=== PATIENT | female | born 1955 | race Caucasian/White ===

== ENCOUNTER 2018-03-25 08:19 | Day surgery (SDC) | payer BC ==
[~2018-03-25] VITALS: Ht 162.6 cm; Wt 96.6 kg
[~2018-03-25 08:19] MED LIST: ACYC800 PO; ALPR.5 PO; AMLO5; ASPI81EC PO; ATEN25 PO; ATOR10 PO; Aspirin EC81 MG PO; BUTRANS1 EAC1 TD; CELE100; CHOL10002 PO; COLE625; CYCL10 PO; Cinnamon500 MG PO; DIAZ5 PO; DULO60 PO; Dyazide 37.5-21 EACH PO; GLIM2 PO; Glimepiride1 MG PO; HORMONE; HYDMOR4 PO; LISI5 PO; LOSHYD PO; MELO7.5 PO; MEPE50 PO; METF500; METF500 PO; METO100ER PO; METO50 PO; MODA200 PO; MULTI VITAMIN1 EACH PO; OMEG1CAP30 PO; OMEP20ER; OMEP20ER PO; POTA10T PO; POTCHL10ER; POTCHL10ER PO; PROM25 PO; RXHYDMOR2 PO; Ranitidine HCl150 M1; SITA100T2 PO; SUPPLEMENTS; VITAMIN C; Zantac150 MG PO; [UNRECOGNIZED DRUG - REMARK]; [UNRECOGNIZED DRUG - REMARK]
== END 2018-03-25 13:30 | disposition home or self-care (01) ==
LOC: ORSCSDS 08:19
PROVIDERS: Orthopaedic Surgery
PROC: 01N40ZZ Release Ulnar Nerve, Open Approach (ICD-10-PCS; principal; 2018-03-25 09:45)
DX: G56.21 Lesion of ulnar nerve, right upper limb (principal); I10 Essential (primary) hypertension; J44.9 Chronic obstructive pulmonary disease, unspecified; G47.33 Obstructive sleep apnea (adult) (pediatric); E11.9 Type 2 diabetes mellitus without complications; K21.9 Gastro-esophageal reflux disease without esophagitis; Z79.899 Other long term (current) drug therapy; Z79.82 Long term (current) use of aspirin; E66.01 Morbid (severe) obesity due to excess calories; Z68.36 Body mass index [BMI] 36.0-36.9, adult
CPT/HCPCS: 82947; J1100; J1885; J2370; J2405; J3010; J7120

== ENCOUNTER 2019-06-07 11:32 | Day surgery (SDC) | payer BC, MEDICARE ==
[~2019-06-07] VITALS: Ht 162.6 cm; Wt 100.9 kg
[~2019-06-07 11:32] MED LIST changes: +ABILIFY MYCITE5 M1; +Amlodipine Bes2.5 MG; +DULO60; +Glucotrol5 MG
--- NOTE | 2019-06-07 12:48 | NUR ---
06/07/19 1248 Marion Comer PT DID A DOUBLE PREP FOR PROCEDURE MIRALAX AND SUPREP
--- NOTE | 2019-06-07 14:59 | NUR ---
06/07/19 1459 Eli Roque PATIENT IS COUGHING, SATS ARE BETWEEN 95-97% ON ROOM AIR. LUNGS ARE CLEAR, PATIENT STATES THAT HER MOUTH IS DRY. NOTIFIED DR. QUILES, PER DR. QUILES PATIENT IS OK TO DISCHARGE HOME.
== END 2019-06-07 14:58 | disposition home or self-care (01) ==
LOC: ORSCSDS 11:32
PROVIDERS: Internal Medicine Gastroenterology
PROC: 0DB68ZX Excision of Stomach, Via Natural or Artificial Opening Endoscopic, Diagnostic (ICD-10-PCS; principal; 2019-06-07 13:00)
PROC: 0DBM8ZX Excision of Descending Colon, Via Natural or Artificial Opening Endoscopic, Diagnostic (ICD-10-PCS; principal; 2019-06-07 13:00)
PROC: 0D758ZZ Dilation of Esophagus, Via Natural or Artificial Opening Endoscopic (ICD-10-PCS; principal; 2019-06-07 13:00)
DX: R13.14 Dysphagia, pharyngoesophageal phase (principal); K76.6 Portal hypertension; K31.89 Other diseases of stomach and duodenum; D12.4 Benign neoplasm of descending colon; K57.30 Diverticulosis of large intestine without perforation or abscess without bleeding; Z12.11 Encounter for screening for malignant neoplasm of colon; Z86.010 Personal history of colon polyps; Z83.71 Family history of colonic polyps; K76.0 Fatty (change of) liver, not elsewhere classified; K74.60 Unspecified cirrhosis of liver; E66.01 Morbid (severe) obesity due to excess calories; Z68.38 Body mass index [BMI] 38.0-38.9, adult; F41.8 Other specified anxiety disorders; G47.33 Obstructive sleep apnea (adult) (pediatric); E11.9 Type 2 diabetes mellitus without complications; Z79.82 Long term (current) use of aspirin; Z79.84 Long term (current) use of oral hypoglycemic drugs; Z79.899 Other long term (current) drug therapy
CPT/HCPCS: 82947; 87081; 88305; 93005; 93010; J2704; J7120

== ENCOUNTER → 2020-02-13 | Outpatient (CLI) | payer BC, MEDICARE ==
[2020-02-13 13:58] LABS: Source, Urine Clean Catch
[2020-02-13 19:31] LABS: Appearance, Urine Clear (Clear); Bilirubin, Urine Neg (Neg); Blood, Urine Neg (Neg); Color, Urine Yellow (P-Yellow); Glucose Qualitative, Urine Neg (Neg); Ketones, Urine Neg (Neg); Leukocyte Esterase, Urine Neg (Neg); Nitrite, Urine Neg (Neg); Protein, Urine Neg (Neg); Specific Gravity, Urine 1.015 (1.003-1.022); Urobilinogen, Urine 3+ (Normal)
== END ==
LOC: LAB 13:56 → LAB SHORT 13:56
PROVIDERS: Nurse Practitioner Family
DX: N39.46 Mixed incontinence (principal); R35.0 Frequency of micturition
CPT/HCPCS: 81003

== ENCOUNTER 2021-05-07 14:01 | Day surgery (SDC) | payer BC, MEDICARE ==
[~2021-05-07] VITALS: Ht 162.6 cm; Wt 96.5 kg
[2021-05-07] MEDS ORDERED: ROSU5 PO (14:59)
== END 2021-05-07 16:43 | disposition home or self-care (01) ==
LOC: ORSCSDS 14:01
PROVIDERS: Internal Medicine Gastroenterology
PROC: 0DJ08ZZ Inspection of Upper Intestinal Tract, Via Natural or Artificial Opening Endoscopic (ICD-10-PCS; principal; 2021-05-07 15:30)
DX: K74.60 Unspecified cirrhosis of liver (principal); Z13.810 Encounter for screening for upper gastrointestinal disorder; K76.6 Portal hypertension; K31.89 Other diseases of stomach and duodenum; G47.39 Other sleep apnea; E11.9 Type 2 diabetes mellitus without complications; K21.9 Gastro-esophageal reflux disease without esophagitis; G47.33 Obstructive sleep apnea (adult) (pediatric); I10 Essential (primary) hypertension; I25.10 Atherosclerotic heart disease of native coronary artery without angina pectoris; E66.9 Obesity, unspecified; Z68.37 Body mass index [BMI] 37.0-37.9, adult; Z79.82 Long term (current) use of aspirin; Z79.84 Long term (current) use of oral hypoglycemic drugs; Z79.899 Other long term (current) drug therapy
CPT/HCPCS: 82947; J0330; J0461; J2405; J2704

== ENCOUNTER 2021-10-04 20:59 | Emergency (ER) | payer BC, MEDICARE ==
[~2021-10-04] VITALS: Ht 167.6 cm; Wt 93.4 kg
[~2021-10-04 20:59] MED LIST changes: +ROSU5 PO
[2021-10-04] MEDS ORDERED: HYDSUL200 PO (22:07)
[2021-10-04 22:20] LABS: BASOPHILS ABSOLUTE AUTO 0.02 K/mm3 (0.00-0.23); BASOPHILS PERCENT AUTO 1 % (0-2); EOSINOPHILS ABSOLUTE AUTO 0.23 K/mm3 (0.00-0.68); EOSINOPHILS PERCENT AUTO 6 % (0-6); Hematocrit 38.5 % (33.0-51.0); Hemoglobin 13.1 g/dL (11.5-16.0); IMMATURE GRAN PERCENT AUTO 0 % (0-1); LYMPHOCYTES ABSOLUTE AUTO 0.83 K/mm3 (0.84-5.20); LYMPHOCYTES PERCENT AUTO 21 % (21-46); MONOCYTES ABSOLUTE AUTO 0.42 K/mm3 (0.16-1.47); MONOCYTES PERCENT AUTO 11 % (4-13); Mean Corpuscular HGB 33.4 pg (26.0-34.0); Mean Corpuscular Volume 98 fL (80-100); Mean Platelet Volume 9.5 fL (9.1-12.4); NEUTROPHILS ABSOLUTE AUTO 2.45 K/mm3 (1.96-9.15); NEUTROPHILS PERCENT AUTO 62 % (41-73); Platelet Count 178 K/mm3 (150-400); RDW Coefficient Variation 13.2 % (11.7-14.2); RDW Standard Deviation 47.4 fL (35.1-46.3); Red Blood Cell Count 3.92 M/mm3 (3.80-5.20); White Blood Cell Count 3.95 K/mm3 (4.00-11.30)
[2021-10-04 22:39] LABS: Albumin, Blood 3.4 g/dL (3.4-5.0); Albumin/Globulin Ratio 0.8 (0.8-1.8); Bilirubin, Total 0.4 mg/dL (0.1-1.0); Bun/Creatinine Ratio 37.8 (12.0-20.0); Calcium, Blood 10.8 mg/dL (8.5-10.1); Creatinine, Blood 0.5 mg/dL (0.40-1.00); Globulin, Blood 4.2 g/dL (2.2-4.0); Potassium, Blood 3.5 mmol/L (3.5-5.5); Total Protein, Blood 7.6 g/dL (6.4-8.2)
[2021-10-04 23:54] LABS: Magnesium, Blood 1.6 mg/dL (1.6-2.4)
[2021-10-05] MEDS ORDERED: MECL25 PO ×2 (01:12→01:36)
== END 2021-10-05 01:39 | disposition home or self-care (01) ==
LOC: ER 20:59
PROVIDERS: Student in an Organized Health Care Education/Training Program
DX: R42 Dizziness and giddiness (principal); R11.0 Nausea; R07.89 Other chest pain; I10 Essential (primary) hypertension; E11.9 Type 2 diabetes mellitus without complications
CPT/HCPCS: 80053; 83735; 84484; 85025; 93005; 93010; A9270

== ENCOUNTER → 2023-05-07 | Outpatient (CLI) | payer OTHER ==
[~2023-05-07] MED LIST changes: +HYDSUL200 PO; +MECL25 PO
[2023-05-07 14:11] LABS: BASOPHILS ABSOLUTE AUTO 0.01 K/mm3 (0.00-0.23); BASOPHILS PERCENT AUTO 0 % (0-2); EOSINOPHILS ABSOLUTE AUTO 0.15 K/mm3 (0.00-0.68); EOSINOPHILS PERCENT AUTO 4 % (0-6); Hematocrit 36.6 % (33.0-51.0); Hemoglobin 11.8 g/dL (11.5-16.0); IMMATURE GRAN ABSOLUTE AUTO 0.02 K/mm3 (0.00-0.10); IMMATURE GRAN PERCENT AUTO 1 % (0-1); LYMPHOCYTES ABSOLUTE AUTO 0.77 K/mm3 (0.84-5.20); LYMPHOCYTES PERCENT AUTO 20 % (21-46); MONOCYTES PERCENT AUTO 8 % (4-13); Mean Corpuscular HGB Conc 32.2 g/dL (31.5-36.5); Mean Corpuscular Volume 102 fL (80-100); Mean Platelet Volume 10.2 fL (9.1-12.4); NEUTROPHILS ABSOLUTE AUTO 2.58 K/mm3 (1.96-9.15); NEUTROPHILS PERCENT AUTO 67 % (41-73); Platelet Count 186 K/mm3 (150-400); RDW Coefficient Variation 14.2 % (11.7-14.2); Red Blood Cell Count 3.58 M/mm3 (3.80-5.20); White Blood Cell Count 3.83 K/mm3 (4.00-11.30)
[2023-05-07 14:39] LABS: Albumin, Blood 3.5 g/dL (3.4-5.0); Albumin/Globulin Ratio 0.9 (0.8-1.8); Bilirubin, Total 0.4 mg/dL (0.1-1.0); Bun/Creatinine Ratio 29.4 (12.0-20.0); Calcium, Blood 10.4 mg/dL (8.5-10.1); Creatinine, Blood 0.72 mg/dL (0.40-1.00); Globulin, Blood 4.1 g/dL (2.2-4.0); Potassium, Blood 3.5 mmol/L (3.5-5.5); Total Protein, Blood 7.6 g/dL (6.4-8.2)
== END | disposition home or self-care (01) ==
LOC: LAB SHORT 14:00 → LAB 14:00
PROVIDERS: Family Medicine
DX: R42 Dizziness and giddiness (principal); R82.90 Unspecified abnormal findings in urine
CPT/HCPCS: 80053; 85025; 87086

== ENCOUNTER 2023-10-07 09:20 | Day surgery (SDC) | payer OTHER ==
[~2023-10-07] VITALS: Ht 162.6 cm; Wt 87.2 kg
[~2023-10-07 09:20] MED LIST changes: +Balanced Salt Epinephrine Irrigation Solution 500 mL IR SCH; +CELEBREX200 MG PO; +CYMBALTA30 M2 PO; +Cipro500 MG PO; +FEROSUL325 MG; +GLIP5 PO; +HYDCHL25 PO; +KLOR-CON 1010 ME9 PO; +Lidocaine HCl/Pf 1% 5 ML VIAL XX SCH; +Moxifloxacin HCL 0.5 MG/0.1 ML 0.4MLSYR RIGHTEYE SCH; +NS 500 ML IV ONE; +OXYB5 PO; +PHENYLEPHRINE\\TROPICAMIDE\\TETRACAINE OPHTHALMIC DILATING SOLN RIGHTEYE PRN; +PRAZOSIN HCL1 M2 PO; +Povidone-Iodine 450 DROP/30 ML Solution RIGHTEYE SCH; +RANOLAZINE ER500 M2 PO; +ROPINIROLE HCL PO; +TOPROL XL25 MG PO; +Triamcinolone Inj Susp 40 MG / ML 1ML Vial INJ SCH; +Triamcinolone Inj Susp 40 MG / ML 1ML Vial ONE
[2023-10-07] MEDS ORDERED: TAMS.4ER (10:11)
[2023-10-07] MEDS ORDERED: BUME1 (10:11)
[2023-10-07] MEDS ORDERED: ESCI10 (10:12)
[2023-10-07] MEDS ORDERED: NS 1,000 ML IV ONE (10:28)
[2023-10-07] MEDS ORDERED: Midazolam HCl 1MG / ML 2ML Vial ONE (10:58)
[2023-10-07] MEDS ORDERED: Tetracaine HCl 0.5% Opth Soln 15 ml RIGHTEYE ONE (10:58)
[2023-10-07 12:14] VITALS: BP 128/67
== END 2023-10-07 11:39 | disposition home or self-care (01) ==
LOC: ORSCSDS 09:20
PROVIDERS: Ophthalmology
PROC: 08RJ3JZ Replacement of Right Lens with Synthetic Substitute, Percutaneous Approach (ICD-10-PCS; principal; 2023-10-07 11:00)
DX: E11.36 Type 2 diabetes mellitus with diabetic cataract (principal); H25.811 Combined forms of age-related cataract, right eye; Z96.1 Presence of intraocular lens; I10 Essential (primary) hypertension; G47.33 Obstructive sleep apnea (adult) (pediatric); Z79.899 Other long term (current) drug therapy; Z79.4 Long term (current) use of insulin
CPT/HCPCS: 82947; J2250; J3301; J7040; V2632

== ENCOUNTER → 2023-11-22 | Outpatient (CLI) | payer OTHER ==
[~2023-11-22] MED LIST changes: +BUME1; -Balanced Salt Epinephrine Irrigation Solution 500 mL IR SCH; +ESCI10; -Lidocaine HCl/Pf 1% 5 ML VIAL XX SCH; -Moxifloxacin HCL 0.5 MG/0.1 ML 0.4MLSYR RIGHTEYE SCH; -NS 500 ML IV ONE; -PHENYLEPHRINE\\TROPICAMIDE\\TETRACAINE OPHTHALMIC DILATING SOLN RIGHTEYE PRN; -Povidone-Iodine 450 DROP/30 ML Solution RIGHTEYE SCH; +TAMS.4ER; -Triamcinolone Inj Susp 40 MG / ML 1ML Vial INJ SCH; -Triamcinolone Inj Susp 40 MG / ML 1ML Vial ONE
[2023-11-29 14:08] LABS: CALCIUM, URINE - PER 24H 91 mg/d (100-250); CALCIUM, URINE - PER VOLUME 5.7 mg/dL; CHLORIDE, URINE - PER 24H 125 mmol/d (140-250); CHLORIDE, URINE - PER VOLUME 78 mmol/L; CITRIC ACID, URINE - PER 24H 930 mg/d (320-1240); CITRIC ACID,URINE - PER VOLUME 581 mg/L; CREATININE, URINE - PER 24H 1136 mg/d (500-1400); CREATININE, URINE - PER VOLUME 71 mg/dL; HOURS COLLECTED 24 hr; MAGNESIUM, URINE - PER VOLUME 18.1 mg/dL; MAGNESIUM, URINE PER 24H 290 mg/d (12-199); OXALATE, URINE - PER 24H 27 mg/d (13-40); OXALATE, URINE - PER VOLUME 17 mg/L; PH, URINE 5.84 (5.00-7.50); PHOSPHORUS, URINE - PER 24H 944 mg/d (400-1300); PHOSPHORUS, URINE - PER VOLUME 59 mg/dL; POTASSIUM, URINE - PER 24H 77 mmol/d (25-125); POTASSIUM, URINE - PER VOLUME 48 mmol/L; SODIUM, URINE - PER 24H 120 mmol/d (51-286); SODIUM, URINE - PER VOLUME 75 mmol/L; SULFATE, URINE - PER 24H 18 mmol/d (6-30); SULFATE, URINE - PER VOLUME 11 mmol/L; TOTAL VOLUME 1600 mL; URIC ACID, URINE - PER 24H 403 mg/d (250-750); URIC ACID, URINE - PER VOLUME 25.2 mg/dL; URINE SUPERSATURATION INTERP Normal; URINE SUPERSATURATION, CAHPO4 0.62; URINE SUPERSATURATION, CAOX 1.76; URINE SUPERSATURATION, UA CALC 0.51
== END ==
LOC: LAB 12:20 → LAB SHORT 12:20 → LAB FUT 11-11 12:45
PROVIDERS: Urology
DX: N20.0 Calculus of kidney (principal)
CPT/HCPCS: 81003; 81050; 82131; 82140; 82340; 82436; 82507; 82570; 83735; 83935; 83945; 84105; 84133; 84300; 84392; 84560

== ENCOUNTER 2023-12-03 13:31 | Emergency (ER) | payer OTHER ==
[~2023-12-03] VITALS: Ht 162.6 cm; Wt 87.5 kg
[2023-12-03 14:35] LABS: Source, Urine Clean Catch
[2023-12-03 15:17] LABS: Appearance, Urine Clear (Clear); Bilirubin, Urine Neg (Neg); Blood, Urine Neg (Neg); Color, Urine Yellow (P-Yellow); Glucose Qualitative, Urine Neg (Neg); Ketones, Urine Neg (Neg); Leukocyte Esterase, Urine Neg (Neg); Nitrite, Urine Neg (Neg); Protein, Urine Neg (Neg); Urobilinogen, Urine NORM (Normal)
[2023-12-03] MEDS ORDERED: Ketorolac Tromethamine 30mg Vial IV ONE (15:30)
[2023-12-03 15:51] LABS: Hematocrit 38.1 % (33.0-51.0); Hemoglobin 12.6 g/dL (11.5-16.0); Mean Corpuscular HGB 32.1 pg (26.0-34.0); Mean Corpuscular HGB Conc 33.1 g/dL (31.5-36.5); Mean Corpuscular Volume 97 fL (80-100); Mean Platelet Volume 9.9 fL (9.1-12.4); Platelet Count 129 K/mm3 (150-400); RDW Coefficient Variation 14.2 % (11.7-14.2); RDW Standard Deviation 50.7 fL (35.1-46.3); Red Blood Cell Count 3.92 M/mm3 (3.80-5.20)
[2023-12-03 16:12] LABS: Albumin, Blood 3.5 g/dL (3.4-5.0); Albumin/Globulin Ratio 0.9 (0.8-1.8); Bilirubin, Total 0.5 mg/dL (0.1-1.0); Bun/Creatinine Ratio 23.3 (12.0-20.0); Calcium, Blood 10.3 mg/dL (8.5-10.1); Creatinine, Blood 0.82 mg/dL (0.40-1.00); Globulin, Blood 4.1 g/dL (2.2-4.0); Potassium, Blood 3.4 mmol/L (3.5-5.5); Total Protein, Blood 7.6 g/dL (6.4-8.2)
[2023-12-03 16:13] LABS: BASOPHILS PERCENT MAN 0 % (0-2); EOSINOPHILS ABSOLUTE MAN 0.14 K/mm3 (0.00-0.68); EOSINOPHILS PERCENT MAN 5 % (0-6); LYMPHOCYTES % ATYPICAL MANUAL 2 % (0-0); LYMPHOCYTES ABSOLUTE MAN 1.09 K/mm3 (0.84-5.20); LYMPHOCYTES PERCENT MAN 37 % (21-46); MONOCYTES ABSOLUTE MAN 0.28 K/mm3 (0.16-1.47); MONOCYTES PERCENT MAN 10 % (4-13); NEUTROPHILS ABSOLUTE MAN 1.28 K/mm3 (1.96-9.15); SEG NEUTROPHILS PERCENT MAN 46 % (41-73); TOTAL CELLS COUNTED 100
[2023-12-03 17:57] VITALS: BP 149/74
== END 2023-12-03 17:57 | disposition home or self-care (01) ==
LOC: ER 13:31
PROVIDERS: Emergency Medicine; Physician Assistant
DX: R10.31 Right lower quadrant pain (principal); Z88.8 Allergy status to other drugs, medicaments and biological substances; Z88.2 Allergy status to sulfonamides; Z88.5 Allergy status to narcotic agent; Z91.040 Latex allergy status; Z79.899 Other long term (current) drug therapy; Z79.84 Long term (current) use of oral hypoglycemic drugs; E11.9 Type 2 diabetes mellitus without complications; E78.00 Pure hypercholesterolemia, unspecified; I10 Essential (primary) hypertension; K21.9 Gastro-esophageal reflux disease without esophagitis
CPT/HCPCS: 76770; 80053; 81003; 85025; 96374; 99284-25; J1885

== ENCOUNTER 2024-08-05 10:38 | Emergency (ER) | payer MEDICARE ==
[~2024-08-05] VITALS: Ht 167.6 cm; Wt 94.8 kg
[2024-08-05] MEDS ORDERED: Mag Hydrox/AL Hydrox/Simeth 30 ML UDC PO ONE (10:55)
[2024-08-05 11:08] LABS: BASOPHILS ABSOLUTE AUTO 0.01 K/mm3 (0.00-0.23); BASOPHILS PERCENT AUTO 0 % (0-2); EOSINOPHILS ABSOLUTE AUTO 0.14 K/mm3 (0.00-0.68); EOSINOPHILS PERCENT AUTO 4 % (0-6); Hematocrit 39.7 % (33.0-51.0); Hemoglobin 12.7 g/dL (11.5-16.0); IMMATURE GRAN ABSOLUTE AUTO 0.01 K/mm3 (0.00-0.10); IMMATURE GRAN PERCENT AUTO 0 % (0-1); LYMPHOCYTES PERCENT AUTO 29 % (21-46); MONOCYTES ABSOLUTE AUTO 0.36 K/mm3 (0.16-1.47); MONOCYTES PERCENT AUTO 10 % (4-13); Mean Corpuscular HGB 31.7 pg (26.0-34.0); Mean Corpuscular Volume 99 fL (80-100); Mean Platelet Volume 9.6 fL (9.1-12.4); NEUTROPHILS ABSOLUTE AUTO 1.95 K/mm3 (1.96-9.15); NEUTROPHILS PERCENT AUTO 56 % (41-73); Platelet Count 145 K/mm3 (150-400); RDW Coefficient Variation 15.6 % (11.7-14.2); RDW Standard Deviation 57.4 fL (35.1-46.3); Red Blood Cell Count 4.01 M/mm3 (3.80-5.20); White Blood Cell Count 3.47 K/mm3 (4.00-11.30)
[2024-08-05 11:31] LABS: Albumin, Blood 3.5 g/dL (3.4-5.0); Albumin/Globulin Ratio 0.9 (0.8-1.8); Bilirubin, Total 0.6 mg/dL (0.1-1.0); Bun/Creatinine Ratio 23.7 (12.0-20.0); Calcium, Blood 9.7 mg/dL (8.5-10.1); Creatinine, Blood 0.76 mg/dL (0.40-1.00); Globulin, Blood 3.9 g/dL (2.2-4.0); Magnesium, Blood 2.1 mg/dL (1.6-2.4); Potassium, Blood 3.5 mmol/L (3.5-5.5); Total Protein, Blood 7.4 g/dL (6.4-8.2)
[2024-08-05] MEDS ORDERED: Ketorolac Tromethamine 30mg Vial IV ONE (12:40)
[2024-08-05] MEDS ORDERED: Ipratropium/Albuterol SulF 2.5-0.5MG/3 ML Amp INH ONE (14:15)
[2024-08-05] MEDS ORDERED: Dexamethasone Sod Phos 10 MG/ML 1ML VIAL IV ONE (14:15)
[2024-08-05 14:21] VITALS: BP 140/82
[2024-08-05] MEDS ORDERED: ALBU90OI INH (15:35)
== END 2024-08-05 17:04 | disposition home or self-care (01) ==
LOC: ER 10:38
PROVIDERS: Student in an Organized Health Care Education/Training Program
DX: J20.9 Acute bronchitis, unspecified (principal); R07.2 Precordial pain; E11.9 Type 2 diabetes mellitus without complications; I10 Essential (primary) hypertension; K21.9 Gastro-esophageal reflux disease without esophagitis; Z87.442 Personal history of urinary calculi; Z88.4 Allergy status to anesthetic agent; Z88.1 Allergy status to other antibiotic agents; Z88.2 Allergy status to sulfonamides; Z88.5 Allergy status to narcotic agent; Z88.0 Allergy status to penicillin; Z88.8 Allergy status to other drugs, medicaments and biological substances; Z88.9 Allergy status to unspecified drugs, medicaments and biological substances; Z79.891 Long term (current) use of opiate analgesic; Z79.890 Hormone replacement therapy; Z79.899 Other long term (current) drug therapy; Z79.51 Long term (current) use of inhaled steroids; Z79.52 Long term (current) use of systemic steroids; Z79.1 Long term (current) use of non-steroidal anti-inflammatories (NSAID); Z79.83 Long term (current) use of bisphosphonates; Z79.84 Long term (current) use of oral hypoglycemic drugs
CPT/HCPCS: 71046; 80053; 83735; 84484; 85025; 93005; 93010; 94644; 94664; 96360; 96361; 96374; 96375; 99285-25; A9270; J1100; J1885